=== PATIENT | male | born 2000 | race Caucasian/White ===

== ENCOUNTER 2024-09-08 18:41 | Emergency (ER) | payer OTHER | END 2024-09-08 20:10 | disposition home or self-care (01) | LOC: MW.ED 18:41 | DX: S61.012A Laceration without foreign body of left thumb without damage to nail, initial encounter (principal); Z88.5 Allergy status to narcotic agent; Z79.899 Other long term (current) drug therapy; X58.XXXA Exposure to other specified factors, initial encounter | CPT/HCPCS: 99283 ==

== ENCOUNTER 2024-09-13 18:14 | Emergency (ER) | payer OTHER | END 2024-09-13 19:44 | disposition home or self-care (01) | LOC: MW.ED 18:14 | DX: Z48.00 Encounter for change or removal of nonsurgical wound dressing (principal); Z88.8 Allergy status to other drugs, medicaments and biological substances | CPT/HCPCS: 99282 ==